=== PATIENT | male | born 1985 | race Caucasian/White ===

== ENCOUNTER → 2019-05-15 14:08 | Outpatient (CLI) | payer BC, SELFPAY ==
[2019-05-15 18:21] LABS: CRP, High Sensitivity Cardiac 2.18 mg/L; Cholesterol 168 mg/dL (200); High Density Lipoprotein 45 mg/dL; Triglycerides 88 mg/dL; Very Low Density Lipoprotein 18 mg/dL (5-40)
[2019-05-15 18:25] LABS: Homocysteine 9.2 umol/L (3.2-10.7)
== END ==
LOC: MFPLAB 14:16
PROVIDERS: Visit Provider Family Medicine
DX: Z82.49 Family history of ischemic heart disease and other diseases of the circulatory system (principal)
CPT/HCPCS: 36415; 80061; 83090; 86141

== ENCOUNTER → 2019-06-01 15:19 | Outpatient (CLI) | payer BC, SELFPAY | PROVIDERS: Family Provider Family Medicine; PCP Family Medicine; Referring Provider Family Medicine; Visit Provider Family Medicine | DX: Z78.9 Other specified health status (principal) | CPT/HCPCS: 36415 ==

== ENCOUNTER → 2020-11-14 16:58 | Outpatient (CLI) | payer OTHER, SELFPAY ==
[2020-11-14 17:56] LABS: Absolute Neutrophil Count 4.5 X10^3/uL (2.0-7.7); Basophil# 0.03 X10^3/uL; Basophil% 0.4 % (0-1); Eosinophil# 0.14 X10^3/uL; Eosinophils% 1.8 % (0-5); Hematocrit 43.8 % (40-54); Lymphocyte % 31.9 % (19-41); Mean Corp Hgb Conc 34.2 g/dL (32-36); Mean Corpuscular Hgb 30.4 pg (27.0-32.0); Mean Corpuscular Volume 88.7 fL (80-94); Mean Platelet Vol. 11.9 fl (6.2-12.0); Monocyte# 0.63 X10^3/uL; NRBC Flagged by Analyzer 0 % (0-5); Neutrophil # 4.52 X10^3/uL (2.7-7.7); Neutrophil % 57.6 % (47-70); Platelet Count 104 K/mm3 (150-450); RBC Distribution Width CV 12.1 % (11.6-14.6); RBC Distribution Width SD 38.4 fl (35.1-43.9); Red Blood Count 4.94 M/mm3 (4.6-6.2); White Blood Count 7.8 K/mm3 (4.4-11.0)
[2020-11-14 18:39] LABS: AST(SGOT) 25 U/L (15-37); Alanine Aminotransfer ALT/SGPT 54 U/L (16-61); Albumin, Serum 3.9 g/dL (3.2-5.0); Alkaline Phosphatase 108 U/L (45-117); Anion Gap 6 (5-15); BUN 18 mg/dL (7-18); BUN/Creat Ratio 16.4 RATIO (10-20); CRP 3.53 mg/L (0.0-3.0); Calcium,Total 9.2 mg/dL (8.5-10.1); Chloride 105 mmol/L (98-107); EST Glomerular Filtration Rate 81 mL/min (>60); Est Glom Filt Rate - Afr Amer 98 mL/min (>60); Globulin 3.9 g/dL (2.2-4.2); Glucose 84 mg/dL (74-106); Lipase 88 U/L (73-393); Potassium 3.6 mmol/L (3.5-5.1); Protein, Total 7.8 g/dL (6.4-8.2); Sodium Level 138 mmol/L (136-145)
[2020-11-15 10:34] LABS: Hepatitis C Antibody Non-Reactive (Nonreactive)
== END ==
PROVIDERS: PCP Family Medicine; Referring Provider Family Medicine; Visit Provider Family Medicine
DX: R10.11 Right upper quadrant pain (principal)
CPT/HCPCS: 36415; 80053; 83690; 85025; 86140; 86803

== ENCOUNTER 2021-04-25 09:00 | Outpatient (RCR) | payer OTHER, SELFPAY ==
--- NOTE | 2021-04-04 09:37 | HP.OTEVAL ---
Patient's Visit Information STUART JOYA is a 36 year old M, referred to Occupational Therapy by Filipe Rincon MD, with a diagnosis of improved bilateral De Quervain's and persistent wrist pain. Date of Evaluation: 03/28/21 Occupational Therapist: Alondra Blanton, OTR/L, CHT - Subjective This 36/M was seen for initial OT eval today for bilateral wrist pain on the radial side. 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 His pain has been there since August 2020, and he recently went to the doctor at the beginning of December, when he started taking anti-inflammatories that have been really helping. He has been wearing thumb braces at night when he sleeps and it has been helping with the pain. The pain only wakes him up at night when he forgets to put his braces on, then it is a 8/10 because he thinks he curls in his sleep. He is R- handed and his R hand hurts more than his L. - Pain Bilateral wrists 2 Pain Intensity Range: 6, 8 - ROM Forearm: R: WNL, L: WNL Wrist: R: WNL, L:WNL Opposition: 10 - Strength Parks [employer] Re[employer] Manager: R: 137#, L: 130# Lateral Pinch: R: 24#, L: 30# Tripod Pinch: R: 22#, L: 24# Strength Comments: He indicated that with the pinch tests, it was tight - Quick DASH-Disab of Arm,Shoulder& Hand Quick DASH Score: 25.0000 - Goals Goal:: pt will demonstrate an increase in R lateral pinch by 6# or greater and a R 3-jaw zuri pinch by 2# or greater to return to PLOF with caregiving and work tasks. Goal:: pt will self-report a decrease in pain at night without braces to no more than 1/10 for better quality sleep. - Rehabilitation General Assessment: Pt demonstrated a decrease lateral and 3-jaw zuri pinch on his dominant hand (R), and increased tightness/pain with certain movements. Pt would demonstrate from skilled OT services 1x a week for 4 weeks to increase strength and educate on work ergonomics to improve function. Today, therapist educated pt on safe techniques for lifting and work tasks, and provided isometrics for wrists to improve function. Pt understood and agreed with POC. Therapy session was directly supervised and doc. approved by Alondra Blanton OTR/Tashi,CHT Rehabilitation Potential: Good - Anticipated Interventions A/AAROM/PROM, Strengthening, Modalities, Joint Protection/Energy Conservation, Ergonomic Education, ADL Training, Home Program - Visit Plan Frequency: 1x/Week Duration: 4 Weeks TEXT: Thank you for the opportunity to evaluate your patient. For Medicare and Medicare HMO plans, please review the plan of care and approve it. It will need to be FAXED BACK to us at [phone] for Medicare purposes. Please let me know if there are questions or concerns regarding this plan of care. Physician Signature: Date:
--- NOTE | 2021-07-31 13:04 | HP.OTDCSUM_ITS ---
It has been my pleasure to treat STUART JOYA under orders from Filipe Rincon MD, for the diagnosis of improved bilateral De Quervain's and persistent wrist pain for a total of 4 visit(s). Please see the following information for a summary of their discharge status. % Improvement: 85 Objective/Function: Pt arrived slightly late; stated he is doing much better, and that he has learned to complete tasks with wrists in neutral position (~85% of tasks). pt demo understanding of wrist and work ergo to prevent injury Patient Goals: Regain Mobility, Regain Strength, Decrease Pain, Use Hand/Wrist/Arm Normally Again, Resume Hobbies Goal:: pt will demonstrate an increase in R lateral pinch by 6# or greater and a R 3-jaw zuri pinch by 2# or greater to return to PLOF with caregiving and work tasks. Goal:: pt will self-report a decrease in pain at night without braces to no more than 1/10 for better quality sleep. Plan: US trigger point release If there are questions or concerns regarding this patient's occupational therapy , please fell free to call me at [phone]. Thank you for the referral of this patient. Sincerely, Alondra Blanton, OTR/L, CHT
== END 2021-04-25 19:00 | disposition home or self-care (01) ==
LOC: OT 09:00
PROVIDERS: PCP Family Medicine; Referring Provider Family Medicine; Visit Provider Family Medicine
DX: M65.4 Radial styloid tenosynovitis [de Quervain] (principal); M25.531 Pain in right wrist
CPT/HCPCS: 97035; 97110; 97140; 97165

== ENCOUNTER → 2022-07-06 | Outpatient (CLI) | payer OTHER, SELFPAY ==
[2022-07-06 13:52] LABS: Anion Gap 8 (5-15); BUN 13 mg/dL (7-18); BUN/Creat Ratio 13.6 RATIO (10-20); Chloride 105 mmol/L (98-107); Cholesterol 160 mg/dL (200); Creatinine, Serum 0.96 mg/dL (0.70-1.30); EST Glomerular Filtration Rate 94 mL/min (>60); Est Glom Filt Rate - Afr Amer 114 mL/min (>60); Glucose 106 mg/dL (74-106); High Density Lipoprotein 46 mg/dL; Sodium Level 139 mmol/L (136-145); Triglycerides 97 mg/dL; Very Low Density Lipoprotein 19 mg/dL (5-40)
== END | disposition home or self-care (01) ==
PROVIDERS: PCP Family Medicine; Referring Provider Family Medicine; Visit Provider Family Medicine
DX: Z00.00 Encounter for general adult medical examination without abnormal findings (principal)
CPT/HCPCS: 36415; 80048; 80061

== ENCOUNTER → 2023-08-23 | Outpatient (CLI) | payer OTHER, SELFPAY ==
--- OUTSIDE RECORDS SUMMARY | 2023-08-23 07:23 | XMS RPT_ITS | CCD ---
Author Name Unknown Address [address] [place] [address] Organization [facility] Care Team Providers Care Roentgenology Teacher Name Role Phone Fuentes Rincon MD Primary Care Provider FUENTES RINCON Primary Care Unavailable RAMOS LYN Attending Unavailable FUENTES RINCON Primary Care Unavailable Medications Completed/Discontinued Medications Medication Drug Class(es) Dates Sig (Normalized) Sig (Original) predniSONE 10 mg oral tablet (1 source) Start: 06-10-2016 predniSONE (DELTASONE) 10 mg tablet Problems Problem Classification Problem Date Documented Date Episodic/Chronic Genitourinary symptoms and ill-defined conditions (2 sources) Dysuria; Translations: [Painful micturition, unspecified] Onset: 07-27-2023 06-16-2023 Episodic Other connective tissue disease (1 source) Other specified disorders of muscle; Translations: [Pelvic floor dysfunction] Onset: 07-27-2023 Episodic Other screening for suspected conditions (not mental disorders or infectious disease) (1 source) Encounter for screening for other disorder; Translations: [Screening for genitourinary condition] Onset: 07-27-2023 Episodic Results Test Name Value Interpretation Reference Range Facil ity Vital Signs Date Time Vital Sign Value Performing Clinician Faci lity 06-16-2023 11:37-0500 Body temperature 97 [degF] Savi Talavera APRN.CHIEF INVESTIGATOR Work Phone: [facility] 06-16-2023 11:37-0500 Body weight 119.48 kg Savi Talavera APRN.CNP Work Phone: [facility] 06-16-2023 11:37-0500 Diastolic blood pressure 78 mm[Hg] Savi Talavera APRN.CNP Work Phone: [facility] 06-16-2023 11:37-0500 Heart rate 90 /min Savi Talavera APRN.CNP Work Phone: [facility] 06-16-2023 11:37-0500 Respiratory rate 21 /min Savi Talavera APRN.SRI Work Phone: [facility] 06-16-2023 11:37-0500 SaO2% (BldA) [Mass fraction] 98 % Savi Talavera APRN.SRI Work Phone: [facility] 06-16-2023 11:37-0500 Systolic blood pressure 124 mm[Hg] Savi Talavera APRN.SRI Work Phone: [facility] Encounters Encounter Date Encounter Type Care Provider Facility Start: 07-27-2023 End: 07-28-2023 [facility] Facility:[facility] Start: 06-16-2023 End: 06-16-2023 [facility] Facility:[facility] Start: 06-16-2023 End: 06-16-2023 Patient encounter procedure Savi Talavera APRN.CNP Work Phone: [facility] Procedures Date Procedure Procedure Detail Performing Clinician Start: 06-16-2023 Urnls dip stick/tabl et rgnt auto w/o microscopy Thomas Morrissey MD Work Phone: Plan of Treatment Date Care Activity Detail Author Start: 04-12-2030 Urine microalbumin profile DTaP,Tdap,Td Vaccine (6 - Td or Tdap) [facility] Start: 04-09-2023 Covid-19 Vaccine ( season) Covid-19 Vaccine ( season) [facility] Start: 04-09-2023 Influenza vaccination Influenza Vaccine (#1) [facility] Start: 08-09-2022 Depression Assessment Depression Assessment [facility] Start: 2021 Lipid 1996 panel - Serum or Plasma Lipid Screening [facility] Start: 01-03-2004 Hepatitis C Screening Hepatitis C Screening [facility] Start: 01-03-2004 HIV Screening HIV Screening [facility] Start: 01-03-1992 Pneumococcal vaccination Pneumococcal Vaccine (1 - PCV) [facility] Start: 1986 Hepatitis B Vaccine (1 of 3 - 3-dose series) Hepatitis B Vaccine (1 of 3 - 3-dose series) [facility] Bacteria identified in Urine by Culture URINE CULTURE Microbiology Routine Pain with urination 06/16/2023 11:51 AM EST [facility] Work Phone: Immunizations Immunization Date Immunization Notes Care Provider Timbo spencer 06-15-2022 influenza virus vacc ine, unspecified formulation Savi Talavera TANIA.CHIEF INVESTIGATOR Work Phone: [facility] Payers Date Payer Category Payer Unknown MMO MMO [employer] PPO [id number] 2022-Present [phone] [address] [place] [address] PPO [id number] 2022 Unknown [id number] Social History Date Type Detail Facility Start: 04-22-[address] [facility] History of tobacco use Cigarette Smoker C [facility] Start: 04-22-2015 Tobacco use and exposure Smoke less tobacco non-user [facility] Start: 06-16-2023 Alcohol intake Not Asked Stalin burden [facility] Start: 07-17-2020 End: 06-16-2023 History of Social function [facility] Start: 07-17-2020 End: 06-16-2023 Tobacco use panel [facility] National Score (1-10 0), lower number is lower risk Not on file [facility] Start: 1986 Sex Assigned At Not on file C [facility] Progress note 07-27-2023 Note Date & Type Note Facility 07-27-2023 Note HNO ID: [id number] Author: Ramos Lyn PA-C Service: ? Author Type: Physician Carousel Attendant Type: Progress Notes Filed: 08/11/2023 7:52 PM Note Text: [facility] NEW PATIENT CLINIC NOTE SERVICE DATE: 07/27/2023 SERVICE TIME: 3:51 PM NAME: Daniel Boyer CHIEF COMPLAINT: Dysuria HISTORY OF PRESENT ILLNESS: Daniel Boyer is a 38 year old male presenting as New Patient Consult for Dysuria The patient reports he has mild pain with in urethra prior to and after urination. After further discussion sounds like pelvic floor dysfunction ranter than UTI LUTS: DYSURIA: no URGENCY: Yes FREQUENCY:4 per day Other symptoms: LABS: No results found for: TESTOST No results found for: TESTFREE No results found for: PSA No results found for: HCT No results found for: PSA No results found for: CREAT MEDICATIONS: No prescriptions on file. PAST MEDICAL HISTORY: PAST MEDICAL HISTORY Diagnosis Date Pain with urination Tobacco abuse PAST SURGICAL HISTORY: PAST SURGICAL HISTORY Procedure Laterality Date NONE FAMILY HISTORY: No family history on file. SOCIAL HISTORY: Social Connections: Not on file REVIEW OF SYSTEMS: GENERAL: No fever, chills, weight loss, or fatigue. ENMT: Negative CARDIOVASCULAR:NO CHEST PAIN, PALPITATIONS, ANKLE EDEMA RESPIRATORY: No chronic cough, wheezing, dyspnea, hemoptysis. GENITOURINARY: SEE HPI MUSCULOSKELETAL:NO CHRONIC BACK PAIN, ARTHRITIS, CHRONIC NECK PAIN SKIN: NO VARICOSE VEINS, RASH, ABNORMAL ITCHING HEME/LYMPH/IMMUNE:Negative for prolonged bleeding, bruising easily or swollen nodes NEUROLOGICAL: NO HEADACHES, NUMBNESS, SEIZURES, STROKE DIABETES: no All other systems reviewed and are negative PHYSICAL EXAMINATION: Blood pressure 118/84, pulse 84, temperature 36.6 ?C (97.9 ?F), temperature source Temporal, resp. rate 14, height 182.9 cm (6'), weight 118.2 kg (260 lb 9.6 oz), SpO2 97%. GENERAL: WNL nutrition, no deformities, healthy appearing NEURO: Awake, alert and oriented x 3 and Normal gait PSYCH: No signs of depression, anxiety, or agitation ENMT (Ear, Nose, Mouth, Throat): No masses, adenopathy, icterus. Thyroid nonpalpable RESP: NL effort, no retractions or purse-lip breathing. CV: No extremity swelling, varices, edema, pallor, erythema GASTROINTESTINAL: Soft, nontender, nondistended, no masses. HERNIAS: None SKIN: No rash, lesions No palpable lymphadenopathy MUSCULOSKELETAL: Extremities normal. No deformities, edema, clubbing or skin discoloration. GENITOURINARY: MALE EXAM: Pelvic Floor bilateral spasm PROBLEM LIST REVIEW: Yes LABS: Results for orders placed or performed in visit on 12/19/23 UA DIP, URINE (POC) Result Value Ref Range GLUCOSE UA (POCT) Negative Negative mg/dL BILIRUBIN UA (POCT) Negative Negative KETONE UA (POCT) Negative Negative mg/dL SPECIFIC GRAVITY UA (POCT) 1.010 1.005 - 1.030 HEMOGLOBIN/BLOOD UA (POCT) Negative Negative PH UA (POCT) 7.0 4.5 - 8.0 PROTEIN UA (POCT) Negative Negative mg/dL UROBILINOGEN UA (POCT) 0.2 Normal E.U./dL NITRITE UA (POCT) Negative Negative LEUKOCYTES UA (POCT) Trace (A) Negative COLOR UA (POCT) Light yellow CLARITY UA (POCT) Clear PROCEDURES: PVR: 0 ml IMAGING: IMPRESSION/PLAN: 38 year old male with 1. Pelvic floor dysfunction - ICD9: 618.83, ICD10: M62.89 (primary diagnosis) 2. Pain with urination - ICD9: 788.1, ICD10: R30.9 3. Screening for genitourinary condition - ICD9: V81.6, ICD10: Z13.89 > consult PFPT > 3 mo. Appt w/ B. MALOU Lyn MT, JEFF for new Rx Follow-up I spent a total of 40 minutes on the date of the service which included preparing to see the patient, face to face patient care, completing clinical documentation, obtaining and/or reviewing separately obtained history, performing a medically appropriate examination, counseling and educating the patient/family/caregiver, ordering medications, tests, or procedures, and care coordination. MALOU Scott MT, PATaC [facility] Progress note 07-27-2023 Note Date & Type Note Facility 07-27-2023 Note HNO ID: [id number] Author: Clair Gilmore LPN Service: ? Author Type: LICENSED NURSE Type: Progress Notes Filed: 08/11/2023 7:52 PM Note Text: Verified name and date of . CC Post Void Residual HPI: Daniel Boyer is a 38 year old male. The patient is here now for an appointment with MALOU Scott MT, EFREN. Procedure: Explained procedure to patient and verbalizes understanding. Performed a PVR. Patient urinated and instructed to empty bladder as much as possible just prior to having PVR done using bladder ultrasound scanner. Results of scan: 0 mL The patient tolerated the procedure well. Plan: Appointment with Ramos. [facility] Progress note 06-16-2023 Note Date & Type Note Facility 06-16-2023 Note HNO ID: [id number] Author: Savi Talavera APRN.CHIEF INVESTIGATOR Service: ? Author Type: Nurse Practitioner Type: Progress Notes Filed: 06/16/2023 1:16 PM Note Text: Subjective The history is provided by the patient. No android software engineer was used. HPI Daniel Boyer is a 38 year old male who presents today for CC of burning with urination, denies any discharge or change of STD's declines testing. He also denies any testicular pain, pain with ejaculation. States in April had new underwear that he felt irritated him. He has not used any medications or treatment. BP 124/78 Pulse 90 Temp 36.1 ?C (97 ?F) Resp 21 Wt 119.5 kg (263 lb 6.4 oz) SpO2 98% Social History Tobacco Use Smoking status: Every Day Types: Cigarettes Smokeless tobacco: Never PAST MEDICAL HISTORY Diagnosis Date NEGATIVE MEDICAL HISTORY I have confirmed and edited as necessary, the [facility] Review of Systems Constitutional: Negative for chills and fever. Gastrointestinal: Negative for abdominal pain. Genitourinary: Positive for dysuria. Negative for flank pain, frequency, hematuria and urgency. Objective Physical Exam Vitals and nursing note reviewed. Pulmonary: Effort: Pulmonary effort is normal. Skin: General: Skin is warm and dry. Neurological: Mental Status: He is alert and oriented to person, place, and time. Psychiatric: Mood and Affect: Affect normal. Declined exam, std testing Component Latest Ref Rng AND Units 06/16/2023 GLUCOSE UA (POCT) Negative mg/dL Negative BILIRUBIN UA (POCT) Negative Negative KETONE UA (POCT) Negative mg/dL Negative SPECIFIC GRAVITY UA (POCT) 1.005 - 1.030 1.010 HEMOGLOBIN/BLOOD UA (POCT) Negative Negative PH UA (POCT) 4.5 - 8.0 7.0 PROTEIN UA (POCT) Negative mg/dL Negative UROBILINOGEN UA (POCT) Normal E.U./dL 0.2 NITRITE UA (POCT) Negative Negative LEUKOCYTES UA (POCT) Negative Negative COLOR UA (POCT) Yellow CLARITY UA (POCT) Clear ASSESSMENT/PLAN: 1. Pain with urination - ICD9: 788.1, ICD10: R30.9 Urine dip negative Will send culture, call if treatment needed Any continued pain, follow up with PCP or Urology - UA DIP, URINE (POC) - URINE CULTURE - CONSULT TO UROLOGY Diagnosis and treatment plan were discussed and questions were answered to the patient's satisfaction. Pt acknowledged understanding of concepts and follow up plan. Specific signs and symptoms that would indicate the need for higher level of care were discussed in detail warranting prompt ER evaluation. Savi Talavera APRN.SRI [facility] History of Present illness Narrative 06-16-2023 Savi Talavera APRN.SRI - 06/16/2023 12:07 PM EST Note Date & Type Note Facility 06-16-2023 History of Presen t illness Narrative Subjective The history is provided by the patient. No android software engineer was used. HPI Daniel Boyer is a 38 year old male who presents today for CC of burning with urination, denies any discharge or change of STD's declines testing. He also denies any testicular pain, pain with ejaculation. States in April had new underwear that he felt irritated him. He has not used any medications or treatment. BP 124/78 Pulse 90 Temp 36.1 C (97 F) Resp 21 Wt 119.5 kg (263 lb 6.4 oz) SpO2 98% Social History Tobacco Use Smoking status: Every Day Types: Cigarettes Smokeless tobacco: Never PAST MEDICAL HISTORY Diagnosis Date NEGATIVE MEDICAL HISTORY I have confirmed and edited as necessary, the [facility] Review of Systems Constitutional: Negative for chills and fever. Gastrointestinal: Negative for abdominal pain. Genitourinary: Positive for dysuria. Negative for flank pain, frequency, hematuria and urgency. Objective Physical Exam Vitals and nursing note reviewed. Pulmonary: Effort: Pulmonary effort is normal. Skin: General: Skin is warm and dry. Neurological: Mental Status: He is alert and oriented to person, place, and time. Psychiatric: Mood and Affect: Affect normal. Declined exam, std testing Component Latest Ref Rng & Units 06/16/2023 GLUCOSE UA (POCT) Negative mg/dL Negative BILIRUBIN UA (POCT) Negative Negative KETONE UA (POCT) Negative mg/dL Negative SPECIFIC GRAVITY UA (POCT) 1.005 - 1.030 1.010 HEMOGLOBIN/BLOOD UA (POCT) Negative Negative PH UA (POCT) 4.5 - 8.0 7.0 PROTEIN UA (POCT) Negative mg/dL Negative UROBILINOGEN UA (POCT) Normal E.U./dL 0.2 NITRITE UA (POCT) Negative Negative LEUKOCYTES UA (POCT) Negative Negative COLOR UA (POCT) Yellow CLARITY UA (POCT) Clear ASSESSMENT/PLAN: 1. Pain with urination - ICD9: 788.1, ICD10: R30.9 Urine dip negative Will send culture, call if treatment needed Any continued pain, follow up with PCP or Urology - UA DIP, URINE (POC) - URINE CULTURE - CONSULT TO UROLOGY Diagnosis and treatment plan were discussed and questions were answered to the patient's satisfaction. Pt acknowledged understanding of concepts and follow up plan. Specific signs and symptoms that would indicate the need for higher level of care were discussed in detail warranting prompt ER evaluation. Savi Talavera APRN.CNP documented in this encounter [facility] Instructions 06-16-2023 Patient Instructions Note Date & Type Note Facility 06-16-2023 Instructions Savi Talavera APRN.CNP - 06/16/2023 11:49 AM EST Urine negative Due to symptoms recommend follow up with urology or PCP documented in this encounter [facility] Evaluation note Note Date & Type Note Facility documented in this encounter [facility] Reason for Referral Specialty Diagnoses / Procedures Referred By Marcela fontanez Referred To Contact Urology Diagnoses Pain with urination Procedures CONSULT TO UROLOGY OFFICE/OUTPATIENT [facility] 60-74 MINUTES Savi Talavera APRN.CNP [address] [place] [address] Referral ID Status Reason Start Date Expiration Date Visits Requested Visits Authorized [id number] Authorized PCP Requested Referral 06/16/2023 06/15/2024 1 1 Summary Purpose Family History No Family History Records Found Advance Directives No Advanced Directives Records Found Additional Source Comments Source Comments (unrecognize d section and content) In the event this informatio n is protected by the Federal Confidentiality of Alcohol and Drug Abuse Patient Records regulations: The Federal rules restrict any use of the information to criminally investigate or prosecute any alcohol or drug abuse patient.[facility] Reason for Visit (unrecogniz ed section and content) Care Teams (unrecognized sec tion and content) (unrecognized sect ion and content) No Status Records Found INFORMATION SOURCE (unrecogn ized section and content) FOR RECORDS PERTAINING TO PATIENTS WHO ARE OR HAVE BEEN ENROLLED IN A CHEMICAL DEPENDENCY/SUBSTANCEABUSE PROGRAM, SOME INFORMATION MAY BE OMITTED. This clinical summary was aggregated from multiple sources. Caution should be exercised in using it in the provision of clinical care. This summary normalizes information from multiple sources, and as a consequence, information in this document may materially change the coding, format and clinical context of patient data. In addition, data may be omitted in some cases. CLINICAL DECISIONS SHOULD BE BASED ON THE PRIMARY CLINICAL RECORDS. [employer] [facility]. provides no warranty or guarantee of the accuracy or completeness of information in this document.
--- NOTE | 2023-08-23 07:24 | US_ITS ---
STUDY: ABDOMINAL ULTRASOUND - RIGHT UPPER QUADRANT REASON FOR VISIT: Male, 38 years old RUQ pain, concerned for gallbladder TECHNIQUE: Ultrasound evaluation of the right upper quadrant was performed with real-time and static thomas-scale imaging. TECHNICAL QUALITY: Adequate. COMPARISON: None. FINDINGS: Liver: The liver is enlarged and measures 18.2 cm. There is increased echogenicity consistent with fatty infiltration. The bile ducts are within normal limits. There is hepatic color flow. The direction of portal flow is hepatopetal. There is no demonstrated mass lesion. Focal fatty sparing is seen along the gallbladder fossa. Gallbladder: Normal distended gallbladder. The gallbladder wall measures 3 mm. There is a negative sonographic Lai''s sign. There is no pericholecystic fluid. There are no gallstones. Common Bile Duct (C.B.D.): The common bile duct measures 4 mm. Pancreas: Normal size of the head, body and tail of the pancreas. There is normal echogenicity of the pancreas. There is no demonstrated pancreatic mass or cyst. Right Kidney: Normal size of the right kidney. The right kidney measures 11.3 cm x 6 cm x 5.6 cm. Normal renal cortex. The right cortex measures 2.1 cm. There is no demonstrated renal mass or cyst. There is no right hydronephrosis. US/Abdomen Limited IMPRESSION: Mild hepatomegaly with fatty infiltration of the liver and focal fatty sparing. Electronically Signed: Rogelio Renee MD at 15:33 EST ,
== END | disposition home or self-care (01) ==
PROVIDERS: PCP Family Medicine; Referring Provider Family Medicine; Visit Provider Family Medicine
DX: R10.11 Right upper quadrant pain (principal)
CPT/HCPCS: 76705